=== PATIENT | female | born 1990 | race American Indian/Alaskan Native ===

== ENCOUNTER 2021-08-08 16:18 | Inpatient (IN) | payer BC ==
[2021-08-08] MEDS ORDERED: SIMETHICONE 80 MG CHEW TAB PO PRN (19:06)
[2021-08-08] MEDS ORDERED: DOCUSATE SODIUM 100 MG CAP PO PRN (19:06)
[2021-08-08] MEDS ORDERED: ACETAMINOPHEN 325 MG TAB PO PRN (19:06)
[2021-08-08] MEDS ORDERED: ONDANSETRON 4 MG/2 ML INJ IV PRN (19:06)
[2021-08-08] MEDS ORDERED: BUTORPHANOL 2 MG/1 ML INJ IV PRN (19:10)
[2021-08-08] MEDS ORDERED: LACTATED RINGERS 1,000 ML IV SCH (19:15)
[2021-08-08 20:19] LABS: Hematocrit 34.1 % (30.3-42.9); Hemoglobin 11.1 gm/dl (10.1-14.3); Mean Corpuscular HGB Conc 33 % (30-34); Mean Corpuscular Volume 84 fl (79-97); Platelet Count 177 K/mm3 (140-440); Red Blood Count 4.05 M/mm3 (3.65-5.03); Red Cell Distribution Width 12.9 % (13.2-15.2)
[2021-08-08 21:14] LABS: Basophils % (Manual) 0 % (0.0-1.8); Eosinophils % (Manual) 0 % (0.0-4.3); Hypochromasia Few; Platelet Estimate Consistent w Auto; Total Cells Counted 100
--- NOTE | 2021-08-09 12:45 | History and Physical Report ---
History of Present Illness Date of examination: 08/08/21 Date of admission: 08/08/21 19:18 Chief complaint: I am having severe pain History of present illness: Patient is 30-year-old 1 para 0 who presented to the office initially on yesterday with a complaint of severe right-sided lower abdominal pain that was sensitive to touch. Patient reports that approximately 3 days prior to the start of the pain she had an episode of vomiting that lasted for approximately 12 hours. Patient stated that after the vomiting subsided she began to have severe right lower quadrant pain just to the right of the midline. The patient is 17 weeks and does not associate this pain with anything related to the . Patient states that when her bladder is full The pain is worse. Patient states that the pain is interfering with her activities of daily life and her ability to drive and she is also having difficulty walking. Patient was seen in the ED at [facility] and the report stated there was a fibroid noted anteriorly that was subserosal however this was not delineated. Patient was admitted today for pain management of lower abdominal pain appears to be unrelated to . Past History Past Medical History: no pertinent history Past Surgical History: no surgical history Family/Genetic History: none Social history: single - Obstetrical History Expected Date of Delivery: 01/12/22 Actual Gestation: 17 Week(s) 5 Day(s) : 1 Medications and Allergies Allergies Allergy/AdvReac Type Severity Reaction Status Date / Time No Known Allergies Allergy Unverified 08/08/21 20:32 Home Medications Medication Instructions Recorded Confirmed Last Taken Type No Known Home Medications [No 08/09/21 08/09/21 Unknown History Reported Home Medications] Active Meds: Active Medications Acetaminophen (Acetaminophen 325 Mg Tab) 650 mg PO Q4H PRN PRN Reason: Pain MILD(1-3)/Fever >100.5/POLK Butorphanol Tartrate (Butorphanol 2 Mg/1 Ml Inj) 1 mg IV Q2H PRN PRN Reason: Labor Pain Docusate Sodium (Docusate Sodium 100 Mg Cap) 100 mg PO Q12H PRN PRN Reason: Constipation Lactated Ringer's (Lactated Ringers) 1,000 mls @ 125 mls/hr IV DIRECT KIMBERLY Indomethacin (Indomethacin 25 Mg Cap) 50 mg PO ONCE ONE Stop: 08/09/21 13:01 Multivitamins/Iron/Calcium ( [id number]-[id number] Fumarate-Folic Acid Vit Tab) 1 each PO QDAY KIMBERLY Ondansetron HCl (Ondansetron 4 Mg/2 Ml Inj) 4 mg IV Q6H PRN PRN Reason: Nausea And Vomiting Simethicone (Simethicone 80 Mg Chew Tab) 80 mg PO Q6H PRN PRN Reason: Gas pain Review of Systems All systems: negative Constitutional: sweats, weakness Gastrointestinal: abdominal pain, nausea, vomiting, change in bowel habits - Vital Signs Vital signs: Vital Signs Temp Pulse Resp BP Pulse Ox 98.5 F 69 20 119/65 100 08/08/21 21:13 08/08/21 21:13 08/08/21 21:13 08/08/21 21:13 08/08/21 21:13 Temp Pulse Resp BP Pulse Ox 98.8 F 97 H 20 116/70 98 08/09/21 12:05 08/09/21 12:05 08/09/21 05:46 08/09/21 12:05 08/09/21 08:00 - Physical Exam Breasts: Positive: deferred Cardiovascular: Regular rate, Normal S1, Normal S2 Lungs: Positive: Clear to auscultation, Normal air movement Abdomen: Positive: normal appearance, tenderness (rlq just to right of midline), normal bowel sounds Genitourinary (Female): Positive: normal external genitalia, normal perenium Vulva: both: normal Vagina: Positive: normal moisture Uterus: Positive: normal size, normal contour Extremities: Positive: normal - Obstetrical FHR: auscultation normal Results Result Diagrams: 08/08/21 19:49 Abnormal lab results 08/08/21 Range/Units 19:49 RDW 12.9 L (13.2-15.2) % Seg Neuts % (Manual) 74.0 H (40.0-70.0) % Seg Neutrophils # Man 7.8 H (1.8-7.7) K/mm3 All other labs normal. Assessment and Plan Patient here with onset of right lower quadrant pain at approximately 17 weeks gestation which does not appear to be related etiology. Patient denies any kind of bleeding or actual cramping and the pain is reproducible on palpation of the lower quadrant on the right. We will admit patient today for pain control suspecting a degenerating fibroid as one was noted on ultrasound previously. We will repeat ultrasound in this facility to see the nature and location and size of the fibroid and begin to treat accordingly to help manage and control her pain from this.
[2021-08-09] MEDS ORDERED: INDOMETHACIN 25 MG CAP PO ONE (13:00)
[2021-08-09] MEDS ORDERED: HYDROcodone/ACETAMINOPHEN 5-325 MG TAB PO PRN (14:30)
[2021-08-09] MEDS ORDERED: BUTORPHANOL 2 MG/1 ML INJ IV PRN (14:30)
--- NOTE | 2021-08-09 15:07 | Ultrasound Report ---
ULTRASOUND OBSTETRIC COMPLETE INDICATION / CLINICAL INFORMATION: evaluate fibroid. Clinical Gestational Age (GA) in weeks.days: 17 weeks 3 days TECHNIQUE: Transabdominal. COMPARISON: None available. FINDINGS: NUMBER: Single PRESENTATION: transverse PLACENTA: Posterior grade 0 and is low lying measuring 2.4 cm from cervical os. CERVIX: closed. Length in cm (if measured): 2.3 cm AMNIOTIC FLUID VOLUME: Subjectively normal. AMNIOTIC FLUID INDEX (GERARDO) in cm (if measured): Not measured. MATERNAL ADNEXA: Not visualized. ANATOMY: organs (including the bladder, stomach, kidneys, heart, umbilical cord, diaphragm, cord inserti on, spine and intracranial structures) are visualized and show no significant abnormality with the fo llowing exception(s): None. MEASUREMENTS: - Biparietal Diameter = 4.4 cm = 19.2 weeks.days - Head Circumference = 15.4 cm = 18.3 weeks.days - Abdominal Circumference = 12.6 cm = 18.1 weeks.days - Femur Length = 3.0 cm = 19.1 weeks.days - Estimated Weight (in grams, if calculated): 250 g - Heart Rate (beats per minute): 145 BPM ADDITIONAL FINDINGS: There is a fibroid visualized in the left uterine body measuring 4.1 x 4.4 x 4.0 cm. PERCENTILE ESTIMATED WEIGHT (if calculated): 98% AVERAGE ULTRASOUND AGE (AUA) in weeks.days = 18.5 IMPRESSION: 1. Single intrauterine with AUA of 18.5 weeks.days. 2. Uterine fibroid measuring 4.4 cm. 3. Borderline low lying placenta measuring 2.4 cm from cervical os. Scribed by: Nicole Wood RDMS, MELANIE, VIOLET Scribed: 08/09/2021 1:29 PM I have reviewed the images, agree with this report, and edited this report as needed. Signer Name: Betito Harkins MD Signed: 08/09/2021 3:03 PM Workstation Name: [id number]
[2021-08-10] MEDS: PRENATAL VIT27-FE FUMARATE-FOLIC ACID VIT TAB PO SCH ×2 (09:54→09:58)
--- NOTE | 2021-08-10 11:47 | Progress Note ---
Assessment and Plan Hospital day 2 for this 18-week IUP with a likely degenerating fibroid. Patient is much more comfortable than on admission. We will plan to discharge on today after a second dose of indomethacin. Patient was advised that she cannot take indomethacin on a prolonged basis, which she understands. We will send patient home with a prescription for Mims. Patient to follow-up in the office this week. Subjective - Subjective Date of service: 08/10/21 Interval history: Patient is 30-year-old 1 para 0 who presented to the office initially on yesterday with a complaint of severe right-sided lower abdominal pain that was sensitive to touch. Patient reports that approximately 3 days prior to the start of the pain she had an episode of vomiting that lasted for approximately 12 hours. Patient stated that after the vomiting subsided she began to have severe right lower quadrant pain just to the right of the midline. The patient is 17 weeks and does not associate this pain with anything related to the . Patient states that when her bladder is full The pain is worse. Patient states that the pain is interfering with her activities of daily life and her ability to drive and she is also having difficulty walking. Patient was seen in the ED at [facility] and the report stated there was a fibroid noted anteriorly that was subserosal however this was not delineated. Ultrasound yesterday confirmed 4 cm anterior wall fibroid. Patient however, states that she is feeling quite a bit of relief with the current medication regimen. She received 1 dose of indomethacin and Mims. Patient still has some tenderness to palpation but is otherwise visibly more comfortable Patient reports: appetite normal, voiding normally, pain well controlled (With Indocin and Mims), other Objective - Vital Signs Latest vital signs: Vital Signs Temp Pulse Resp BP BP Pulse Ox 08/10/21 08:04 98.1 F 66 18 98/62 98 08/10/21 07:48 100 08/10/21 04:41 98.1 F 82 16 112/68 97 08/10/21 00:40 97.7 F 66 18 106/62 98 08/09/21 21:15 98.0 F 69 16 97/66 98 08/09/21 20:00 100 08/09/21 15:39 68 115/64 08/09/21 13:41 20 08/09/21 12:05 98.8 F 97 H 116/70 Intake and Output 08/09/21 08/10/21 08/10/21 22:59 06:59 14:59 Intake Total 300 240 Output Total 500 Balance 300 -260 Intake: Intake, Free Water 300 240 Output: Urine 500 Void 500 Other: Total, Output Amount 300 Voiding Method Toilet Toilet # Voids Void 2 Weight 88.2 kg - Exam Cardiovascular: Present: Regular rate, Normal S1, Normal S2 Lungs: Present: Clear to auscultation, Normal air movement Abdomen: Present: normal appearance, soft, tenderness (Minimal and right lower quadrant), normal bowel sounds Uterus: Present: normal, fundal height at umbilicus Extremities: Present: normal
--- NOTE | 2021-08-10 11:51 | Discharge Summary ---
Providers - Providers Date of Admission: 08/08/21 19:18 Date of discharge: 08/10/21 Attending physician: CARMEN VIVAR Primary care physician: CARMEN VIVAR Hospitalization Reason for admission: other (Pelvic pain, degenerating fibroid) Discharge diagnosis: other Condition at discharge: Good Disposition: 01 HOME / SELF CARE / HOMELESS Plan - Discharge Medications Prescriptions: HYDROcodone/APAP 5-325 [[place] 5/325] 1 each PO Q6HR PRN #30 tablet PRN Reason: Pain - Provider Discharge Summary Activity: routine Diet: routine Instructions: routine Additional instructions: [] Smoking cessation referral if applicable(refer to patient education folder for contact #) [] Refer to [facility]'s [facility] Booklet Call your doctor immediately for: * Fever > 100.5 * Heavy vaginal bleeding ( >1 pad per hour) * Severe persistent headache * Shortness of breath * Reddened, hot, painful area to leg or breast * Drainage or odor from incision. * Keep incision clean and dry at all times and follow doctor's instructions regarding bathing/showering - Follow up plan Follow up: CARMEN VIVAR MD [Primary Care Provider] - 7 Days
[2021-08-10] MEDS ORDERED: INDOMETHACIN 25 MG CAP PO ONE (12:16)
[2021-08-10 13:19] VITALS: BP 117/68
== END 2021-08-10 13:00 | disposition home or self-care (01) | DRG 833 ==
LOC: 3A 16:18 → UNDOADMIN 16:18 → OB 19:18
PROVIDERS: ADMIT Obstetrics & Gynecology; ATTEND Obstetrics & Gynecology
DX: O26.892 Other specified pregnancy related conditions, second trimester (principal); O34.12 Maternal care for benign tumor of corpus uteri, second trimester; Z3A.17 17 weeks gestation of pregnancy; R10.9 Unspecified abdominal pain; Z20.822 Contact with and (suspected) exposure to COVID-19
CPT/HCPCS: 36415; 76805; 85007; 85025; 86850; 86900; 86901; G0378; U0003

== ENCOUNTER 2021-11-14 18:08 | Outpatient (CLI) | payer BC ==
[2021-11-14 19:09] VITALS: BP 130/71
[2021-11-14 19:30] LABS: Bacteria,Urine 4+ /HPF (Negative); Mucus,Urine FEW /HPF
[2021-11-14 19:35] LABS: Bilirubin,Urine Negative (Negative); Blood,Urine Negative (Negative); Color,Urine Yellow (Yellow); PH,Urine 6.5 (5.0-7.0); Protein,Urine <15 mg/dL mg/dL (Negative); Urobilinogen,Urine < 2.0 mg/dL (<2.0)
--- NOTE | 2021-11-14 22:04 | Ultrasound Report ---
ULTRASOUND OBSTETRIC LIMITED INDICATION / CLINICAL INFORMATION: r/o abruption. Clinical Gestational Age (GA) in weeks, days: 31, 6 TECHNIQUE: Transabdominal. COMPARISON: None available. FINDINGS: HEART RATE (beats per minute): 135 There is a right lateral grade 1 placenta. No evidence of abruption. PRESENTATION: Cephalic. ADDITIONAL FINDINGS: None. IMPRESSION: 1. No evidence of abruption. Signer Name: Allen Hope DO Signed: 11/14/2021 10:00 PM Workstation Name: [id number]
== END 2021-11-14 23:10 | disposition home or self-care (01) ==
LOC: TRG 18:08 → APU 18:09 → TRG 23:10
PROVIDERS: ATTEND Obstetrics & Gynecology
DX: O26.893 Other specified pregnancy related conditions, third trimester (principal); Z3A.31 31 weeks gestation of pregnancy; V89.2XXA Person injured in unspecified motor-vehicle accident, traffic, initial encounter; Y93.89 Activity, other specified; Y92.89 Other specified places as the place of occurrence of the external cause; Y99.8 Other external cause status
CPT/HCPCS: 76815; 81001

== ENCOUNTER 2021-12-16 18:16 | Outpatient (CLI) | payer BC ==
[2021-12-16 19:54] LABS: Hematocrit 28.7 % (30.3-42.9); Hemoglobin 9.5 gm/dl (10.1-14.3); Mean Corpuscular HGB Conc 33 % (30-34); Mean Corpuscular Volume 80 fl (79-97); Platelet Count 184 K/mm3 (140-440); Red Blood Count 3.57 M/mm3 (3.65-5.03); Red Cell Distribution Width 13.6 % (13.2-15.2)
[2021-12-16 19:56] LABS: Bacteria,Urine 1+ /HPF (Negative)
[2021-12-16 19:58] LABS: Color,Urine Yellow (Yellow)
[2021-12-16 20:14] LABS: Alanine Aminotransferase 25 units/L (7-56); Uric Acid 4.3 mg/dL (3.5-7.6)
[2021-12-16 20:34] VITALS: BP 125/76
== END 2021-12-16 21:00 | disposition home or self-care (01) ==
LOC: TRG 18:16 → APU 18:19 → TRG 21:00
PROVIDERS: ATTEND Obstetrics & Gynecology
DX: I10 Essential (primary) hypertension (principal)
CPT/HCPCS: 36415; 81001; 82565; 83615; 84450; 84460; 84550; 85027

== ENCOUNTER 2022-01-06 20:24 | Inpatient (IN) | payer BC ==
[2022-01-06] MEDS ORDERED: ePHEDrine SULFATE 50 MG/1 ML INJ IV PRN (21:07)
[2022-01-06] MEDS ORDERED: miSOPROStol 200 MCG TAB PR PRN (21:07)
[2022-01-06] MEDS ORDERED: BUTORPHANOL 2 MG/1 ML INJ IV PRN (21:07)
[2022-01-06] MEDS ORDERED: TERBUTALINE 1 MG/1 ML INJ SUB-Q PRN (21:07)
[2022-01-06] MEDS ORDERED: OXYTOCIN 10 UNIT/1 ML INJ IM PRN (21:07)
[2022-01-06] MEDS ORDERED: LOPERAMIDE 2 MG CAP PO PRN (21:07)
[2022-01-06] MEDS ORDERED: ONDANSETRON 4 MG/2 ML INJ IV PRN (21:07)
[2022-01-06] MEDS ORDERED: CARBOPROST TROMETHAMINE 250 MCG/1 ML INJ IM PRN (21:07)
[2022-01-06] MEDS ORDERED: MINERAL OIL 30 ML ORAL LIQD PO PRN (21:07)
[2022-01-06] MEDS ORDERED: DINOPROSTONE 10 MG VAG SUPP VG ONE ×2 (21:07→23:45)
[2022-01-06] MEDS ORDERED: NALOXONE 0.4 MG/1 ML INJ IV PRN (21:07)
[2022-01-06] MEDS ORDERED: LIDOCAINE (2%) 20 MG/1 ML VIAL 20 ML MDV INFILTRATI ONE (21:07)
[2022-01-06] MEDS ORDERED: AMPICILLIN/NS 2 GM/100 ML 2 GM/100 ML BAG IV ONE (21:07)
[2022-01-06] MEDS ORDERED: fentaNYL 100 MCG/2 ML INJ IV PRN (21:07)
[2022-01-06] MEDS ORDERED: ACETAMINOPHEN 325 MG TAB PO PRN (21:07)
--- NOTE | 2022-01-06 21:16 | History and Physical Report ---
History of Present Illness Chief complaint: Called by [facility] to present for induction of labor History of present illness: Pt is a 31 year old primigravdia MEGHANN 01/13/22 at 39w0d who presents as a direct admission per [facility] for gestational hypertension. She has had prental care with Dr Ketty Keith, however full record not available for review. She is GBS positive. Past History Past Medical History: hypertension (gestatinal ) Social history: no significant social history - Obstetrical History Expected Date of Delivery: 01/13/22 Actual Gestation: 39 Week(s) 1 Day(s) : 1 Medications and Allergies Allergies Allergy/AdvReac Type Severity Reaction Status Date / Time No Known Allergies Allergy Unverified 08/08/21 20:32 Home Medications Medication Instructions Recorded Confirmed Last Taken Type HYDROcodone/APAP 5-325 [[place] 1 each PO Q6HR PRN #30 tablet 08/10/21 Unknown Rx 5/325] Active Meds: Active Medications Acetaminophen (Acetaminophen 325 Mg Tab) 650 mg PO Q4H PRN PRN Reason: Pain, Mild (1-3) Butorphanol Tartrate (Butorphanol 2 Mg/1 Ml Inj) 1 mg IV Q2H PRN PRN Reason: Pain, Moderate(4-6) LABOR PAIN Carboprost Tromethamine (Carboprost Tromethamine 250 Mcg/1 Ml Inj) 250 mcg IM ONCE PRN PRN Reason: Uterine Bleeding Dinoprostone (Dinoprostone 10 Mg Vag Supp) 10 mg VG ONCE ONE Stop: 01/06/22 22:01 Ephedrine Sulfate (Ephedrine Sulfate 50 Mg/1 Ml Inj) 10 mg IV Q2M PRN PRN Reason: Hypotension Fentanyl (Fentanyl 100 Mcg/2 Ml Inj) 100 mcg IV Q2H PRN PRN Reason: Pain,Severe (7-10) LABOR PAIN Oxytocin/Sodium Chloride (Pitocin/Ns 30 Unit/500ml) 30 units in 500 mls @ 2 mls/hr IV TITR KIMBERLY; Protocol Lactated Ringer's (Lactated Ringers) 1,000 mls @ 125 mls/hr IV DIRECT KIMBERLY Oxytocin/Sodium Chloride (Pitocin/Ns 30 Unit/500ml) 30 units in 500 mls @ 40 mls/hr IV TITR KIMBERLY; Protocol Ampicillin Sodium (Ampicillin/Ns 2 Gm/100 Ml) 2 gm in 100 mls @ 100 mls/hr IV ONCE ONE; Protocol Stop: 01/06/22 22:06 Ampicillin Sodium (Ampicillin/Ns 1 Gm/50 Ml) 1 gm in 50 mls @ 100 mls/hr IV Q4H KIMBERLY; Protocol Lidocaine (Lidocaine (2%) 20 Mg/1 Ml Vial 20 Ml Mdv) 20 ml INFILTRATI ONCE ONE Stop: 01/06/22 21:08 Loperamide HCl (Loperamide 2 Mg Cap) 2 mg PO ONCE PRN PRN Reason: give with Hemabate Mineral Oil (Mineral Oil 30 Ml Oral Liqd) 30 ml PO QHS PRN PRN Reason: Constipation Misoprostol (Misoprostol 200 Mcg Tab) 800 mcg FL ONCE PRN PRN Reason: Uterine Bleeding Naloxone HCl (Naloxone 0.4 Mg/1 Ml Inj) 0.1 mg IV Q2MIN PRN PRN Reason: Res Rate </= 8 or 02 SAT < 92% Ondansetron HCl (Ondansetron 4 Mg/2 Ml Inj) 4 mg IV Q8H PRN PRN Reason: Nausea And Vomiting Oxytocin (Oxytocin 10 Unit/1 Ml Inj) 10 unit IM ONCE PRN PRN Reason: Uterine Bleeding Terbutaline Sulfate (Terbutaline 1 Mg/1 Ml Inj) 0.25 mg SUB-Q ONCE PRN PRN Reason: Hyperstimulation/Hypertonicity Review of Systems All systems: negative - Vital Signs Vital signs: Vital Signs Pulse Ox 97 01/06/22 20:56 Temp Pulse Resp BP Pulse Ox 71 132/79 97 01/06/22 21:12 01/06/22 21:08 01/06/22 21:12 - Physical Exam Breasts: Positive: deferred Abdomen: Positive: soft (obese, gravid ) Results Result Diagrams: 01/06/22 21:30 01/06/22 21:30 All other labs normal. Assessment and Plan A: IUP at 39w0d Gestational Hypertension Unfavorable Cervix GBS positive P: Admit to labor and delivery Cervical ripening with cervidil Closely monitor blood pressure, maternal and status Ampicillin for GBS prophylaxis
[2022-01-06] MEDS ORDERED: OXYTOCIN DRIP 30 UNITS/500 ML BAG IV SCH ×2 (22:00)
[2022-01-06 22:05] LABS: Hematocrit 31.2 % (30.3-42.9); Hemoglobin 9.9 gm/dl (10.1-14.3); Mean Corpuscular HGB Conc 32 % (30-34); Mean Corpuscular Volume 81 fl (79-97); Platelet Count 166 K/mm3 (140-440); Red Blood Count 3.87 M/mm3 (3.65-5.03); Red Cell Distribution Width 14.6 % (13.2-15.2)
[2022-01-06 22:22] LABS: Mucus,Urine FEW /HPF
[2022-01-06 22:26] LABS: Alanine Aminotransferase 25 units/L (7-56); Color,Urine Yellow (Yellow); Uric Acid 5.8 mg/dL (3.5-7.6)
[2022-01-06] MEDS: LACTATED RINGERS 1,000 ML IV SCH (23:25)
[2022-01-07] MEDS: AMPICILLIN/NS 1 GM/50 ML 1 GM/50 ML BAG IV SCH ×4 (03:18→22:31)
--- NOTE | 2022-01-07 13:06 | Progress Note ---
Assessment and Plan - Patient Problems (1) Hypertension affecting Current Visit: Yes Status: Acute Plan to address problem: transition to pitocin continue plan of care Subjective - Subjective Date of service: 01/07/22 Interval history: Patient is without complaints. Having regular contractions. Cervidil removed. Cervix 2cm intact. Will transition to pitocin. Patient reports: no new complaints Objective - Vital Signs Vital Signs: Vital Signs - 12hr 01/07/22 01/07/22 01/07/22 01:06 01:11 01:19 Temperature 97.6 F Pulse Rate 62 69 Respiratory 17 Rate Blood Pressure O2 Sat by Pulse 96 97 Oximetry 01/07/22 01/07/22 01/07/22 01:21 01:26 01:31 Temperature Pulse Rate 70 71 68 Respiratory Rate Blood Pressure O2 Sat by Pulse 99 98 97 Oximetry 01/07/22 01/07/22 01/07/22 01:36 01:41 01:46 Temperature Pulse Rate 68 75 67 Respiratory Rate Blood Pressure O2 Sat by Pulse 98 97 97 Oximetry 01/07/22 01/07/22 01/07/22 01:51 01:56 02:01 Temperature Pulse Rate 71 66 70 Respiratory Rate Blood Pressure O2 Sat by Pulse 97 98 97 Oximetry 01/07/22 01/07/22 01/07/22 02:06 02:11 02:16 Temperature Pulse Rate 70 66 66 Respiratory Rate Blood Pressure O2 Sat by Pulse 97 97 97 Oximetry 01/07/22 01/07/22 01/07/22 02:21 02:26 02:31 Temperature Pulse Rate 65 65 66 Respiratory Rate Blood Pressure O2 Sat by Pulse 96 96 96 Oximetry 01/07/22 01/07/22 01/07/22 02:36 02:41 02:46 Temperature Pulse Rate 64 63 64 Respiratory Rate Blood Pressure O2 Sat by Pulse 96 96 96 Oximetry 01/07/22 01/07/22 01/07/22 02:51 02:56 03:01 Temperature Pulse Rate 66 64 64 Respiratory Rate Blood Pressure O2 Sat by Pulse 97 96 96 Oximetry 01/07/22 01/07/22 01/07/22 03:06 03:14 03:19 Temperature Pulse Rate 68 74 69 Respiratory Rate Blood Pressure O2 Sat by Pulse 97 97 95 Oximetry 01/07/22 01/07/22 01/07/22 03:24 03:27 03:29 Temperature Pulse Rate 64 60 63 Respiratory Rate Blood Pressure O2 Sat by Pulse 96 93 94 Oximetry 01/07/22 01/07/22 01/07/22 03:34 03:39 03:44 Temperature Pulse Rate 64 69 61 Respiratory Rate Blood Pressure O2 Sat by Pulse 96 95 96 Oximetry 01/07/22 01/07/22 01/07/22 03:49 03:54 03:59 Temperature Pulse Rate 64 62 65 Respiratory Rate Blood Pressure O2 Sat by Pulse 96 96 96 Oximetry 01/07/22 01/07/22 01/07/22 04:04 04:09 04:14 Temperature Pulse Rate 64 58 L 67 Respiratory Rate Blood Pressure O2 Sat by Pulse 97 97 96 Oximetry 01/07/22 01/07/22 01/07/22 04:19 04:24 04:28 Temperature Pulse Rate 67 62 64 Respiratory Rate Blood Pressure O2 Sat by Pulse 97 97 93 Oximetry 01/07/22 01/07/22 01/07/22 04:29 04:34 04:39 Temperature Pulse Rate 61 73 58 L Respiratory Rate Blood Pressure O2 Sat by Pulse 97 98 96 Oximetry 01/07/22 01/07/22 01/07/22 04:44 04:48 04:49 Temperature Pulse Rate 62 74 93 H Respiratory Rate Blood Pressure O2 Sat by Pulse 96 92 96 Oximetry 01/07/22 01/07/22 01/07/22 04:54 04:59 05:04 Temperature Pulse Rate 69 63 66 Respiratory Rate Blood Pressure O2 Sat by Pulse 97 97 97 Oximetry 01/07/22 01/07/22 01/07/22 05:09 05:14 05:19 Temperature Pulse Rate 67 69 66 Respiratory Rate Blood Pressure O2 Sat by Pulse 97 97 97 Oximetry 01/07/22 01/07/22 01/07/22 05:24 05:29 05:41 Temperature Pulse Rate 83 68 70 Respiratory Rate Blood Pressure O2 Sat by Pulse 97 97 98 Oximetry 01/07/22 01/07/22 01/07/22 05:46 05:51 05:56 Temperature Pulse Rate 70 69 70 Respiratory Rate Blood Pressure O2 Sat by Pulse 97 96 97 Oximetry 01/07/22 01/07/22 01/07/22 06:01 06:06 06:11 Temperature Pulse Rate 66 71 74 Respiratory Rate Blood Pressure O2 Sat by Pulse 97 97 97 Oximetry 0901/07/22 01/07/22 06:16 06:21 06:26 Temperature Pulse Rate 78 77 69 Respiratory Rate Blood Pressure O2 Sat by Pulse 97 95 98 Oximetry 01/07/22 01/07/22 01/07/22 06:31 06:36 06:41 Temperature Pulse Rate 63 74 73 Respiratory Rate Blood Pressure O2 Sat by Pulse 97 98 98 Oximetry 01/07/22 01/07/22 01/07/22 06:46 06:47 06:51 Temperature Pulse Rate 64 72 80 Respiratory Rate Blood Pressure O2 Sat by Pulse 93 93 95 Oximetry 01/07/22 01/07/22 01/07/22 06:52 06:56 07:01 Temperature Pulse Rate 83 68 76 Respiratory Rate Blood Pressure O2 Sat by Pulse 94 98 96 Oximetry 01/07/22 01/07/22 01/07/22 07:03 07:06 07:11 Temperature Pulse Rate 79 77 99 H Respiratory Rate Blood Pressure O2 Sat by Pulse 94 96 97 Oximetry 01/07/22 01/07/22 01/07/22 07:16 07:17 07:20 Temperature Pulse Rate 89 89 72 Respiratory Rate Blood Pressure 150/92 O2 Sat by Pulse 98 94 Oximetry 01/07/22 01/07/22 01/07/22 07:21 07:26 07:31 Temperature Pulse Rate 75 69 65 Respiratory Rate Blood Pressure O2 Sat by Pulse 98 98 98 Oximetry 01/07/22 01/07/22 01/07/22 07:36 07:41 07:46 Temperature Pulse Rate 70 58 L 68 Respiratory Rate Blood Pressure O2 Sat by Pulse 100 98 98 Oximetry 01/07/22 01/07/22 01/07/22 07:51 07:56 08:01 Temperature Pulse Rate 67 70 78 Respiratory Rate Blood Pressure O2 Sat by Pulse 98 97 97 Oximetry 01/07/22 01/07/22 01/07/22 08:06 08:11 08:18 Temperature Pulse Rate 84 70 76 Respiratory Rate Blood Pressure O2 Sat by Pulse 94 98 98 Oximetry 01/07/22 01/07/22 01/07/22 08:20 08:23 08:28 Temperature Pulse Rate 82 78 71 Respiratory Rate Blood Pressure 136/88 O2 Sat by Pulse 98 96 Oximetry 01/07/22 01/07/22 01/07/22 08:33 08:38 08:43 Temperature Pulse Rate 68 69 66 Respiratory Rate Blood Pressure O2 Sat by Pulse 96 96 96 Oximetry 01/07/22 01/07/22 01/07/22 08:48 08:53 08:58 Temperature Pulse Rate 66 68 74 Respiratory Rate Blood Pressure O2 Sat by Pulse 97 95 97 Oximetry 01/07/22 01/07/22 01/07/22 09:03 09:08 09:13 Temperature Pulse Rate 69 67 67 Respiratory Rate Blood Pressure O2 Sat by Pulse 96 96 96 Oximetry 01/07/22 01/07/22 01/07/22 09:18 09:20 09:23 Temperature Pulse Rate 68 75 79 Respiratory Rate Blood Pressure 132/80 O2 Sat by Pulse 96 98 Oximetry 01/07/22 01/07/22 01/07/22 09:28 09:33 09:38 Temperature Pulse Rate 78 62 64 Respiratory Rate Blood Pressure O2 Sat by Pulse 98 97 97 Oximetry 01/07/22 01/07/22 01/07/22 09:43 09:48 09:52 Temperature Pulse Rate 70 76 76 Respiratory Rate Blood Pressure O2 Sat by Pulse 98 95 94 Oximetry 01/07/22 01/07/22 01/07/22 09:53 09:58 10:03 Temperature Pulse Rate 76 69 76 Respiratory Rate Blood Pressure O2 Sat by Pulse 96 97 97 Oximetry 01/07/22 01/07/22 01/07/22 10:14 10:19 10:21 Temperature Pulse Rate 81 80 71 Respiratory Rate Blood Pressure 144/85 O2 Sat by Pulse 98 98 Oximetry 01/07/22 01/07/22 01/07/22 10:22 10:24 10:29 Temperature Pulse Rate 81 77 Respiratory Rate Blood Pressure O2 Sat by Pulse 98 98 98 Oximetry 01/07/22 01/07/22 01/07/22 10:34 10:39 10:44 Temperature Pulse Rate 68 75 73 Respiratory Rate Blood Pressure O2 Sat by Pulse 98 98 97 Oximetry 01/07/22 01/07/22 01/07/22 10:49 10:54 10:59 Temperature Pulse Rate 79 77 79 Respiratory Rate Blood Pressure O2 Sat by Pulse 96 97 97 Oximetry 01/07/22 01/07/22 01/07/22 11:04 11:09 11:14 Temperature Pulse Rate 73 73 74 Respiratory Rate Blood Pressure O2 Sat by Pulse 97 97 97 Oximetry 01/07/22 01/07/2201/07/22 11:19 11:20 11:24 Temperature Pulse Rate 69 70 74 Respiratory Rate Blood Pressure 141/84 O2 Sat by Pulse 96 96 Oximetry 01/07/22 01/07/22 01/07/22 11:26 11:29 11:34 Temperature Pulse Rate 78 78 63 Respiratory Rate Blood Pressure O2 Sat by Pulse 94 96 96 Oximetry 01/07/22 01/07/22 01/07/22 11:39 11:44 11:49 Temperature Pulse Rate 66 62 61 Respiratory Rate Blood Pressure O2 Sat by Pulse 98 98 98 Oximetry 01/07/22 01/07/22 01/07/22 11:54 11:56 11:59 Temperature Pulse Rate 65 74 86 Respiratory Rate Blood Pressure O2 Sat by Pulse 97 93 96 Oximetry 01/07/22 01/07/22 01/07/22 12:04 12:09 12:14 Temperature Pulse Rate 81 73 63 Respiratory Rate Blood Pressure O2 Sat by Pulse 96 96 96 Oximetry 01/07/22 01/07/22 01/07/22 12:19 12:20 12:24 Temperature Pulse Rate 63 66 72 Respiratory Rate Blood Pressure 153/98 O2 Sat by Pulse 98 99 Oximetry 01/07/22 01/07/22 01/07/22 12:29 12:34 12:39 Temperature Pulse Rate 78 65 60 Respiratory Rate Blood Pressure O2 Sat by Pulse 98 97 94 Oximetry 01/07/22 01/07/22 01/07/22 12:43 12:44 12:49 Temperature Pulse Rate 73 67 62 Respiratory Rate Blood Pressure O2 Sat by Pulse 94 96 97 Oximetry 01/07/22 01/07/22 12:54 12:59 Temperature Pulse Rate 68 70 Respiratory Rate Blood Pressure O2 Sat by Pulse 96 95 Oximetry - Labs Labs: Abnormal Labs 01/06/22 01/06/22 21:30 21:30 Hgb 9.9 L MCH 26 L Lactate Dehydrogenase 315 H Laboratory Results - last 24 hr 01/06/22 01/06/22 01/06/22 21:30 21:30 21:30 WBC RBC Hgb Hct MCV MCH MCHC RDW Plt Count Creatinine Estimated GFR Uric Acid AST ALT Lactate Dehydrogenase Urine Color Yellow Urine Turbidity Clear Specific [place] (Man) 1.015 Ur Protein (Man) <30 mg dl Ur Ketones (Man) Negative Ur Nitrite (Man) Negative Ur Reducing Substances Not Reportable Urine Ictotest Not Reportable Leukocyte Esterase (Man) Negative Urine WBC (Auto) 1.0 Urine RBC (Auto) 2.0 Urine RBC (Manual) Negative Urine Mucus Few Syphilis IgG/IgM Ab Nonreactive SARS-CoV-2 (PCR) Blood Type B POSITIVE Antibody Screen Negative 01/06/22 01/06/22 01/07/22 21:30 21:30 10:33 WBC 7.9 RBC 3.87 Hgb 9.9 L Hct 31.2 MCV 81 MCH 26 L MCHC 32 RDW 14.6 Plt Count 166 Creatinine 0.9 Estimated GFR > 60 Uric Acid 5.8 AST 39 ALT 25 Lactate Dehydrogenase 315 H Urine Color Urine Turbidity Specific [place] (Man) Ur Protein (Man) Ur Ketones (Man) Ur Nitrite (Man) Ur Reducing Substances Urine Ictotest Leukocyte Esterase (Man) Urine WBC (Auto) Urine RBC (Auto) Urine RBC (Manual) Urine Mucus Syphilis IgG/IgM Ab SARS-CoV-2 (PCR) Negative Blood Type Antibody Screen
[2022-01-07] MEDS: LACTATED RINGERS 1,000 ML IV SCH ×2 (14:00→22:29)
[2022-01-08] MEDS: AMPICILLIN/NS 1 GM/50 ML 1 GM/50 ML BAG IV SCH (02:26)
[2022-01-08] MEDS ORDERED: NALOXONE 0.4 MG/1 ML INJ IV PRN (03:26)
[2022-01-08] MEDS ORDERED: ePHEDrine SULFATE 50 MG/1 ML INJ IV PRN (03:26)
[2022-01-08] MEDS ORDERED: fentaNYL-BUPIV 2 MCG/ML-0.125% 200 MCG/100 ML BAG EPIDURAL SCH (04:00)
[2022-01-08] MEDS ORDERED: LIDOCAINE (2%) 20 MG/1 ML VIAL 20 ML MDV INFILTRATI ONE (04:39)
--- NOTE | 2022-01-08 04:55 | Procedure Note ---
OB Delivery Note - Delivery Date of Delivery: 01/08/22 Surgeon: JESUS HILL Estimated blood loss: 500cc - Vaginal Delivery presentation: vertex Delivery position: OA Intrapartum events: gestational hypertension, hemorrhage Delivery monitor: external FHT, external uterine Route of delivery: Delivery placenta: spontaneous Delivery cord: 3 umbilical vessels Episiotomy: none Delivery laceration: 2nd degree Delivery repair: vicryl Anesthesia: local - A at 1 minute: 8 at 5 minutes: 9 Gender: Male (weight 7lbs 5oz)
[2022-01-08] MEDS ORDERED: PROMETHAZINE 25 MG RECT SUPP PR PRN (04:56)
[2022-01-08] MEDS ORDERED: PROMETHAZINE 25 MG TAB PO PRN (04:56)
[2022-01-08] MEDS ORDERED: MAGNESIUM HYDROXIDE (MOM) ORAL LIQD UDC PO PRN (04:56)
[2022-01-08] MEDS ORDERED: ONDANSETRON 4 MG/2 ML INJ IV PRN (04:56)
[2022-01-08] MEDS ORDERED: WITCH HAZEL/ GLYCERIN PAD TP PRN (04:56)
[2022-01-08] MEDS ORDERED: ACETAMINOPHEN 325 MG TAB PO PRN (04:56)
[2022-01-08] MEDS ORDERED: diphenhydrAMINE 25 MG CAP PO PRN (04:56)
[2022-01-08] MEDS ORDERED: HYDROcodone/ACETAMINOPHEN 5-325 MG TAB PO PRN (04:56)
[2022-01-08] MEDS ORDERED: LANOLIN/ZINC/DIMETHICONE (LANSINOH) 7 GM TP PRN (04:56)
[2022-01-08 17:11] LABS: Hematocrit 24.4 % (30.3-42.9); Hemoglobin 7.8 gm/dl (10.1-14.3)
[2022-01-08] MEDS: IBUPROFEN 600 MG TAB PO SCH (20:17)
[2022-01-09] MEDS: IBUPROFEN 600 MG TAB PO SCH ×2 (01:39→05:53)
--- NOTE | 2022-01-09 08:45 | Progress Note ---
Assessment and Plan - Patient Problems (1) Hypertension affecting Current Visit: Yes Status: Acute Plan to address problem: Patient doing well Discharge home Subjective - Subjective Date of service: 01/09/22 Interval history: Patient is without complaints. Patient reports: appetite normal, voiding normally, pain well controlled [place]: doing well Objective - Vital Signs Latest vital signs: Vital Signs Temp Pulse Resp BP BP Pulse Ox Pulse Ox 01/09/22 05:53 98 01/09/22 03:15 98 01/09/22 01:35 98 01/09/22 00:45 98.2 F 85 20 110/65 97 01/08/22 23:30 98 01/08/22 22:18 85 126/78 01/08/22 22:15 98 01/08/22 20:55 98 01/08/22 18:11 78 120/70 01/08/22 17:26 98.5 F 84 20 116/69 96 01/08/22 12:26 99.4 F 87 18 121/85 99 01/08/22 11:45 98 01/08/22 11:15 96 H 145/83 Intake and Output 01/08/22 01/09/22 01/09/22 22:59 06:59 14:59 Intake Total 220 240 Output Total 1450 Balance -1230 240 Intake: Oral 220 240 Output: Urine 1450 Void 1450 Other: Total, Intake Amount 220 240 Total, Output Amount 750 # Voids Void 1 1 - Labs Labs: Abnormal lab results 01/08/22 Range/Units 16:45 Hgb 7.8 L (10.1-14.3) gm/dl Hct 24.4 L D (30.3-42.9) %
--- NOTE | 2022-01-09 08:45 | Discharge Summary ---
Providers - Providers Date of Admission: 01/06/22 21:07 Date of discharge: 01/09/22 Attending physician: CARMEN VIVAR Primary care physician: CARMEN VIVAR Hospitalization Reason for admission: induction of labor Delivery: Discharge diagnosis: IUP at term delivered Hospital course: The patient was induced for gestational hypertension. She had a successful vaginal delivery. course was uneventful. Condition at discharge: Good Disposition: 01 HOME / SELF CARE / HOMELESS - Discharge Diagnoses (1) Hypertension affecting Status: Acute Plan - Discharge Medications Prescriptions: Ibuprofen [Motrin] 800 mg PO Q8HR PRN #30 tablet PRN Reason: Pain , Severe (7-10) HYDROcodone/APAP 5-325 [[place] 5/325] 1 each PO Q6HR PRN #15 tablet PRN Reason: Pain - Provider Discharge Summary Activity: no sex for 6 weeks, no heavy lifting 4 weeks, no strenuous exercise Diet: routine Instructions: routine Additional instructions: [] Smoking cessation referral if applicable(refer to patient education folder for contact #) [] Refer to [facility] Booklet Call your doctor immediately for: * Fever > 100.5 * Heavy vaginal bleeding ( >1 pad per hour) * Severe persistent headache * Shortness of breath * Reddened, hot, painful area to leg or breast * Schedule visit in [address] Vivar - Follow up plan
[2022-01-09 10:02] VITALS: BP 122/70
== END 2022-01-09 14:10 | disposition home or self-care (01) | DRG 807 ==
LOC: TRG 20:24 → LD 20:26 → TRG 21:07 → OB 01-08 11:23
PROVIDERS: ADMIT Obstetrics & Gynecology; ATTEND Obstetrics & Gynecology
PROC: 10E0XZZ Delivery of Products of Conception, External Approach (ICD-10-PCS; principal; 2022-01-08)
PROC: 0KQM0ZZ Repair Perineum Muscle, Open Approach (ICD-10-PCS; 2022-01-08)
DX: O13.4 Gestational [pregnancy-induced] hypertension without significant proteinuria, complicating childbirth (principal); Z37.0 Single live birth; O72.1 Other immediate postpartum hemorrhage; Z3A.39 39 weeks gestation of pregnancy; Z20.822 Contact with and (suspected) exposure to COVID-19; O99.824 Streptococcus B carrier state complicating childbirth; O70.1 Second degree perineal laceration during delivery
CPT/HCPCS: 36415; 59200; 81001; 82565; 83615; 84450; 84460; 84550; 85014; 85018; 85027; 86592; 86850; 86900; 86901; 96374; G0378; J3490; J0290; J2405; J2590; J3010; J7120; U0003